=== PATIENT | male | born 1945 | race Caucasian/White ===

== ENCOUNTER 2021-09-29 06:32 | Observation (INO) ==
[2021-09-29] MEDS ORDERED: Lidocaine/EPI 1:100k 1% 50 ML VIAL ONE (07:35)
[2021-09-29] MEDS ORDERED: 0.9 % Sodium Chloride 500 ML ONE ×2 (07:35→08:40)
[2021-09-29] MEDS ORDERED: Heparin 1,000 UNITS/500 mL 500 ML ONE (07:35)
[2021-09-29] MEDS ORDERED: D5% in Water 500 ML ONE (07:37)
[2021-09-29 07:45] LABS: Basophils % 0.7 %; Eosinophils # 0.1 K/mcL (0.0-0.6); Eosinophils % 4.3 %; Hematocrit 43.5 % (37.5-50.1); Hemoglobin 14.2 g/dL (12.9-16.9); Lymphocytes # 0.8 K/mcL (0.6-4.6); Lymphocytes % 27.4 %; Mean Corpuscular HGB Conc 32.6 g/dL (31.6-35.5); Mean Corpuscular Hemoglobin 34.5 pg (28.0-33.3); Mean Corpuscular Volume 105.6 fL (83.0-100.0); Mean Platelet Volume 9.4 fL (9.4-12.4); Monocytes # 0.3 K/mcL (0.0-1.3); Monocytes % 8.7 %; Neutrophils # 1.8 K/mcL (1.6-8.9); Platelet Count 163 K/mcL (140-400); Red Blood Count 4.12 M/mcL (4.19-5.50); Red Cell Distribution Width 13.6 % (11.5-14.5); Segmented Neutrophils % 58.9 %
[2021-09-29 07:54] LABS: INR 1.1; Prothrombin Time 12.6 Seconds (9.4-12.1)
[2021-09-29 08:04] LABS: Alanine Aminotransferase 61 Units/L (7-52); Albumin 3.8 g/dL (3.5-5.7); Alkaline Phosphatase 262 Units/L (34-104); Aspartate Amino Transferase 54 Units/L (13-39); BUN/Creatinine Ratio 13 (6-26); Bilirubin,Total 0.4 mg/dL (0.3-1.0); Blood Urea Nitrogen 10 mg/dL (8-23); Calcium 9.1 mg/dL (8.6-10.3); Carbon Dioxide 28 mEq/L (23-29); Chloride 103 mEq/L (98-107); Globulin 3.8 g/dL (2.4-3.5); Glucose 100 mg/dL (70-105); Osmolality,Calculated 279 (280-300); Potassium 4.3 mEq/L (3.5-5.1); Sodium 135 mEq/L (136-145); Total Protein 7.6 g/dL (6.4-8.9); eGFR For African Americans > 60 (> 60); eGFR For Non-African Americans > 60 (> 60)
[2021-09-29] MEDS ORDERED: Iopamidol - 300 50 ML VIAL IVP ONE ×2 (10:11)
[2021-09-29] MEDS ORDERED: Melatonin 3 MG TABLET PO PRN (15:28)
[2021-09-29] MEDS ORDERED: Ondansetron ODT 4 MG TAB.RAPDIS SL PRN (15:28)
[2021-09-29] MEDS ORDERED: Naloxone 0.4 MG/ML INJ IVP PRN (15:28)
[2021-09-29 16:38] LABS: Hematocrit 40.1 % (37.5-50.1); Hemoglobin 13.4 g/dL (12.9-16.9)
[2021-09-29] MEDS ORDERED: Fluticasone Propionate Nasal 50 MCG/SPRAY BOTTLE NS ONE (20:05)
[2021-09-30 05:45] LABS: BUN/Creatinine Ratio 17 (6-26); Blood Urea Nitrogen 11 mg/dL (8-23); Calcium 8.9 mg/dL (8.6-10.3); Carbon Dioxide 25 mEq/L (23-29); Chloride 103 mEq/L (98-107); Glucose 103 mg/dL (70-105); Hematocrit 41.6 % (37.5-50.1); Hemoglobin 13.4 g/dL (12.9-16.9); Magnesium 1.9 mg/dL (1.6-2.6); Mean Corpuscular HGB Conc 32.2 g/dL (31.6-35.5); Mean Corpuscular Hemoglobin 33.3 pg (28.0-33.3); Mean Corpuscular Volume 103.2 fL (83.0-100.0); Mean Platelet Volume 9.2 fL (9.4-12.4); Osmolality,Calculated 280 (280-300); Platelet Count 153 K/mcL (140-400); Potassium 3.8 mEq/L (3.5-5.1); Red Blood Count 4.03 M/mcL (4.19-5.50); Red Cell Distribution Width 13.5 % (11.5-14.5); Sodium 135 mEq/L (136-145); White Blood Count 3.5 K/mcL (4.3-11.1); eGFR For African Americans > 60 (> 60); eGFR For Non-African Americans > 60 (> 60)
[2021-09-30 06:45] VITALS: BP 122/69
[2021-09-30 11:40] VITALS: PULSE 94; TEMP 100; O2SAT 95
== END 2021-09-30 13:30 | disposition home or self-care (01) ==
LOC: INTRAD 06:32 → 3NENU 06:32 → INTRAD 13:05 → 3NENU 15:51
PROVIDERS: ADMIT Internal Medicine; ATTEND Internal Medicine